=== PATIENT | male | born 1995 | race Caucasian/White ===

== ENCOUNTER 2022-01-10 14:00 | Outpatient (CLI) | payer OTHER, SELFPAY ==
--- NOTE | ~2022-01-10 | CT_ITS ---
EXAMINATION: CT diagnostic chest wo con DATE: 01/10/2022 15:16 INDICATION: Shortness of breath, dyspnea. Midsternal chest pain upon inspiration. TECHNIQUE: Computed tomography (CT) of the chest was performed without intravenous contrast. Automate d exposure control and iterative reconstruction technique were employed. Exam dose: 392.63 mGy-cm to kamilah exam DLP. COMPARISON: None FINDINGS: No pulmonary infiltrate or consolidation, pulmonary mass lesion or pneumothorax. No pleural effusion. No pneumomediastinum. Normal tracheobronchial tree. No hilar or mediastinal mass lesion or lymphadenopathy. Normal heart size. No thoracic aortic aneurys m. Included skeletal structures are unremarkable. IMPRESSION: Negative examination Reviewed, dictated and finalized at Location [facility]. Reviewed, dictated and finalized at location A. IMPRESSION: Negative examination
--- NOTE | 2022-01-10 16:22 | WPDSIXMINUTE ---
Six Minute Walk Procedure Procedure Performed Pulmonary Stress Test (6 min walk) Six Minute Walk Six Minute Walk: This is a 6 minute walk test. The test was performed and interpreted in accordance with the 2014 ERS/ATS task force guidelines. Findings: The patient's resting room air oxygen saturation measured by pulse oximetry was 95% and heart rate was 71 bpm. Patient ambulated [id number] meters and oxygen saturation remained 95 to 99%. Heart rate at the end of the study was 117 bpm. The patient did not qualify for supplemental oxygen at rest or with ambulation. There are no prior studies for comparison.
--- NOTE | 2022-01-10 16:23 | P.PCNPFT_ITS ---
PFT Procedure Performed PFT Procedure Performed Spirometry with Pre/Post Bronchodilator Plethysmography (Lung Vol) Diffusing Cap (DLCO) Flow Vol Loop PFT Interpretation This is a pulmonary function test with pre and post-bronchodilator spirometry, plethysmography and diffusing capacity. The test was performed and results interpreted in accordance with the 2019 and 2005 ATS/ERS Task Force guidelines respectively using the Global Lung Function Initiative-2012 reference equations. Patient demonstrated good effort and cooperation. Reproducibility criteria were met. The quality of the pre bronchodilator spirometry maneuver was Grade A and post bronchodilator spirometry maneuver was Grade A. Findings: Spirometry: There is decreased maximal expiratory airflow at all lung volumes. The contour the inspiratory flow tracing is normal. The pre bronchodilator FVC is 4.60 L, 81% predicted. The pre bronchodilator FEV1 is 3.23 L, 68% predicted. The pre bronchodilator FEV1: FVC ratio 70%. The post bronchodilator FVC is 4.74 L, representing a 3% increase. The post bronchodilator FEV1 is 3.39 L, representing a 5% increase. The post bronchodilator FEV1: FVC ratio 72%. Plethysmography: The total lung capacity is 5.77 L, 82% predicted. The functional residual capacity is 2.52 L, 73% predicted. The residual volume is 1.17 L, 75% predicted. Diffusion capacity: The diffusion capacity unadjusted for hemoglobin and carboxyhemoglobin is 37.8, 102% predicted. Diffusing capacity adjusted for a lveolar volume is 7.12, 135% predicted. Impression: There is a moderate obstructive abnormality without significant improvement after inhaling a single dose of albuterol. The lung volumes are normal. The diffusing capacity unadjusted for hemoglobin and carboxyhemoglobin is normal and is increase when adjusted for alveolar volume. There are no prior studies for comparison
== END 2022-01-10 14:01 | disposition home or self-care (01) ==
LOC: ANHPFT 14:04
PROVIDERS: PCP Emergency Medicine; Visit Provider Internal Medicine Pulmonary Disease
DX: R06.00 Dyspnea, unspecified (principal); Z87.891 Personal history of nicotine dependence; R94.2 Abnormal results of pulmonary function studies
CPT/HCPCS: 71250; 94060; 94618; 94726; 94729

== ENCOUNTER 2025-04-02 11:05 | Emergency (ER) | payer OTHER, SELFPAY ==
--- NOTE | ~2025-04-02 | US_ITS ---
ULTRASOUND ABDOMEN LIMITED (RIGHT UPPER QUADRANT) Clinical History: epigastric pain Comparison: None Technique: Right upper quadrant sonography Findings: Liver: Normal size. Hyperechoic. No intrahepatic biliary ductal dilatation. Normal hepatopedal flow main portal vein. Common Duct: Normal caliber. 5 mm. Gallbladder: Stone. No wall thickening. No pericholecystic fluid. Negative sonographic Mason's sign per technologist report Pancreas: With the obscured by bowel gas. Right kidney: Unremarkable. Retrohepatic IVC: Unremarkable. IMPRESSION: 1. Gallstones. No evidence of cholecystitis. 2. Hepatic steatosis and/or diffuse hepatocellular disease. Reviewed, dictated and finalized at location R.
--- NOTE | ~2025-04-02 | XR_ITS ---
Examination: XR chest 2V Clinical History: intermittent pain when breathing Comparison: CT chest 01/10/2022 Technique: PA and Lateral Findings: Cardiomediastinal silhouette normal size and configuration. Small patchy opacity right lower lobe. No acute bony abnormality. IMPRESSION: 1. Small right lower lobe atelectasis and/or airspace disease. Reviewed, dictated and finalized at location R.
[2025-04-02 11:07] VITALS: BP 147/72; PULSE 72; RESP 18; TEMP 36.8; O2SAT 97
--- OUTSIDE RECORDS SUMMARY | 2025-04-02 11:07 | XMS_ITS | Clinical Summary ---
Author Organization [facility] Address [address] [place] [address] Care Team Providers Care Puzzle Assembler Name Role Phone Ronn Salazar MD Primary Care Provider [phone] Source Comments [facility],non-owned Affiliates and Associated Physician Practices is amultiple site organization consisting of ambulatory clinics and hospital sitesin [place], [place], [place] and [place]. This disclosure is being madepursuant to the Care Everywhere program and may not contain all information available regarding this patient. Last updated 18.[facility] Allergies Active Allergy Reactions Criticality Noted Date Comments Casein Diarrhea High 03/22/2022 Chocolate Diarrhea High 03/22/2022 Coffee Flavor Diarrhea High 03/22/2022 [place] Oil Diarrhea High 03/22/2022 Peanut Butter Flavor Diarrhea High 03/22/2022 Soy Allergy Diarrhea High 03/22/2022 Sulfa Drugs Rash Medium 03/22/2022 Sumatriptan Rash Medium 03/22/2022 Tomato Diarrhea High 03/22/2022 Wheat Bran Diarrhea High 03/22/2022 Medications * Be aware that medications may not be up to date on this document. Alwaysverify current medications with the patient. albuterol HFA (PROAIR HFA) 108 (90 BASE) MCG/ACT inhalerIndicatio ns:Acute bronchitis, unspecified organism Inhale 2 puffs by mouth every 4 hours as needed for Shortness of Breath, Wheezing or Cough 1 Inhaler 7 Active benzonatate (TESSALON) 200 MG capsuleIndicatio ns:Acute bronchitis, unspecified organism Take 1 capsule by mouth 3 times daily as needed for Cough 30 capsule 7 Active lidocaine (Lidoderm) 5 % patch Apply 1 (one) patch to skin once daily Apply patch to most painful area and remove after 12 hours. May reapply a new patch 12 hours later. 30 patch 2 Active fluticasone propionate (Flonase) 50 MCG/ACT nasal spray Irvona 2 (two) sprays into each nostril once daily 16 g 11 2 Active Active Problems Problem Noted Date Diagnosed Date Migraines 04/25/2022 PVC (premature ventricular contraction) 04/25/20 22 Allergic asthma, unspecified asthma severity, un complicated 04/25/2022 Social History Tobacco Use Types Packs/Day Years Used Date Smoking Tobacco: Never Smokeless Tobacco: Never Alcohol Use Standard Drinks/Week Comments Never 0 (1 standard drink = 0.6 oz pur e alcohol) AUDIT-C Answer Date Recorded Q1: How often do you have a drink containing alcohol? Never 03/22/2022 Q2: How many drinks containi ng alcohol do you have on a typical day when you are drinking? Patient does not drink Q3: How often do you have si x or more drinks on one occasion? Never 03/22/2022 PHQ-2 Answer Date Recorded PHQ2 TOTAL SCORE 0 04/25/2022 Sex and Gender Information Value Date Recorded Sex Assigned at Not on file Legal Sex Male 8:37 AM CDT Gender Identity Not on file Sexual Orientation Not on file Last Filed Vital Signs Vital Sign Reading Time Taken Comments Blood Pressure 110/78 04/25/2022 2:48 PM CDT Pulse 83 04/25/2022 2:48 PM CDT Temperature 36.2 C (97.2 F) 04/25/2022 2:48 PM CDT Respiratory Rate 18 04/25/2022 2:48 PM CDT Oxygen Saturation 97% 04/25/2022 2:48 PM CDT Inhaled Oxygen Concentration - - Weight 102 kg (224 lb 12.8 oz) 04/25/2022 2:48 P M CDT Height 177.8 cm (5' 10) 04/25/2022 2:48 PM CDT Body Mass Index 32.26 04/25/2022 2:48 PM CDT Plan of Treatment Health Maintenance Due Date Last Done Comments HIV SCREENING 09/18/2011 HEPATITIS C SCREENING 09/13/2014 DTAP/TDAP/TD VACCINES (1 - Tdap) 09/18/2015 HEPATITIS B VACCINE (1 of 3 - 19+ 3-dose series) 09/18/2015 HPV VACCINE (1 - 3-dose SCDM series) 09/18/2023 DEPRESSION SCREENING 07/07/2024 04/25/2022 COVID-19 VACCINE (3 - season) 2025 11/04/2020, 10/07/2020 INFLUENZA VACCINE (#1) 2025 4, 06/03/2012, 08/08/2009, Additional history exists ZOSTER VACCINE (1 of 2) 2046 HIB VACCINE Aged Out No longer eligi ble based on patient's age to complete this topic MENINGOCOCCAL (Group B) VACCINE SHARED DECISION-MAKING Aged Out No longer eligible based on patient's age to complete this topic MENINGOCOCCAL GROUPS A/C/Y/W VACCINE Aged Out No longer eligible based on patient's age to complete this topic PNEUMOCOCCAL VACCINE Aged Out No long er eligible based on patient's age to complete this topic Insurance [employer] Care Teams Puzzle Assembler Relationship Specialty Start Date End Date Ronn Salazar MD [address] [facility] [address] [place] [address] PCP - General 10/23/17
--- OUTSIDE RECORDS SUMMARY | 2025-04-02 11:07 | XMS_ITS | Clinical Summary ---
Author Organization [facility] Address [address] [place] [address] Phone Care Team Providers Care Glassware Defect Repairer Name Role Phone Ronn Salazar Primary Care Provider [phone] Leslie Sifuentes APRN, PHOTOSTAT OPERATOR Unavailable [phone] Allergies Active Allergy Reactions Criticality Noted Date Comments Fluoxetine Unknown 08/10/2021 Sertraline Unknown 08/10/2021 Medications Cyanocobalamin (B-12 PO) Take by mouth. Active VITAMIN D PO Take by mouth. Active ARIPiprazole (ABILIFY) 2 MG Tablet Take 2 mg by mouth daily. Active OXcarbazepine (TRILEPTAL) 300 MG Tablet Take 300 mg by mouth 2 times daily. Active hydrALAZINE 50 MG Tablet Take 50 mg by mouth 3 times daily. Active topiramate (TOPAMAX) 100 MG TabletIndication s:Chronic migraine w/o aura w/o status migrainosus, not intractable TAKE 1 TABLET BY MOUTH TWICE A DAY 60 Tablet 3 11/06/2022 Active Rizatriptan Benzoate 5 MG TABLET DISPERSIBLEIndic ations:Chronic migraine w/o aura w/o status migrainosus, not intractable Take 1 Tablet by mouth once as needed for Migraine. 10 Tablet 3 03/19/2023 Active Active Problems No known active problems Family History Medical History Relation Name Comments Cancer Maternal Grandfather Stroke Maternal Grandfather Cancer Maternal Grandmother Heart Attack Maternal Grandmother Migraines Mother Cancer Paternal Grandfather Cancer Paternal Grandmother Relation Name Status Comments Maternal Grandfather Maternal Grandmother Mother Alive Paternal Grandfather Paternal Grandmother Social History Tobacco Use Types Packs/Day Years Used Date Smoking Tobacco: Never Smokeless Tobacco: Never Tobacco Cessation:Counseling Given: Not Answered Alcohol Use Standard Drinks/Week Comments Not Currently 0 (1 standard drink = 0.6 oz pur e alcohol) Sex and Gender Information Value Date Recorded Sex Assigned at Not on file Legal Sex Male 11:39 PM CDT Gender Identity Not on file Sexual Orientation Not on file Last Filed Vital Signs Vital Sign Reading Time Taken Comments Blood Pressure 122/70 01/26/2023 1:26 AM CDT Pulse 76 01/26/2023 1:26 AM CDT Temperature 37.7 C (99.9 F) 01/25/2023 10:10 PM CDT Respiratory Rate 18 01/26/2023 1:26 AM CDT Oxygen Saturation 98% 01/26/2023 1:26 AM CDT Inhaled Oxygen Concentration - - Weight 99.8 kg (220 lb) 01/25/2023 10:10 PM CDT Height 175.3 cm (5' 9) 01/25/2023 10:10 PM CDT Body Mass Index 32.49 01/25/2023 10:10 PM CDT Plan of Treatment Health Maintenance Due Date Last Done Comments Hepatitis C Virus (HCV) Screening 1996 Human Papillomavirus (HPV) Immunization (1 - 3-dose SCDM series) 09/18/2023 Influenza Immunization (#1) 03/07/202505/07, 06/03/2012, 06/03/2012, Additional history exists SARS-COV-2 Immunization ( season) 2025 11/04/2020, 10/07/2020 Respiratory Syncytial Virus (RSV) Immunization (Adult) (1 - 1-dose 75+ series) 09/18/2071 Hepatitis B Immunization Completed 997, 1996, 1996 DTaP/Tdap/Td Immunization Discontinued 2006, 11/20/2001, 01/03/1998, Additional history exists TdaP Immunization Completed 12/12/2006 Meningococcal Immunization (ACWY) Completed 03/24/2013, 05/17/2008 Pneumococcal Immunization Combined Aged Out No longer eligible based on patient's age to complete this topic Rotavirus Immunization Aged Out No lo nger eligible based on patient's age to complete this topic Insurance [facility] Care Teams Glassware Defect Repairer Relationship Specialty Start Date End Date Ronn Salazar [address] [place] [address] PCP - General Family Medicine 08/10/21 Leslie Sifuentes APRN, PHOTOSTAT OPERATOR [address] [facility] [place] [id number] Nurse Practitioner Advanced Practice Nurse 10/08/22
--- OUTSIDE RECORDS SUMMARY | 2025-04-02 11:07 | XMS_ITS | Encounter Summary ---
Author Organization [facility] Address [address] [place] [address] Phone Care Team Providers Care Manufacturing Teacher Name Role Phone Ronn Salazar Primary Care Provider Leslie Sifuentes APRN, MACHINE TOOL TECHNOLOGY INSTRUCTOR Unavailable [phone] Reason for Visit * Reason Comments Medication Refill Encounter Details Date Type Department Care Team (Late st Contact Info) Description 11/06/2022 Refill [facility] - Neurology [facility] [address] [place] [address] Leslie Sifuentes, IMAGING SCHEDULER, MACHINE TOOL TECHNOLOGY INSTRUCTOR [address] [place] [address] Medication Refill Social History Tobacco Use Types Packs/Day Years Used Date Smoking Tobacco: Never Smokeless Tobacco: Never Alcohol Use Standard Drinks/Week Comments Not Currently 0 (1 standard drink = 0.6 oz pur e alcohol) Sex and Gender Information Value Date Recorded Sex Assigned at Not on file Legal Sex Male 11:39 PM CDT Gender Identity Not on file Sexual Orientation Not on file COVID-19 Exposure Response Date Recorded In the last 10 days, have yo u been in contact with someone who was confirmed or suspected to have Coronavirus/COVID-19? No / Unsure 11/07/2022 6:55 AM CDT documented as of this encounter Miscellaneous Notes * Telephone Encounter - Tiffany Garcia RN - 11/06/2022 1:04 PM CDT Medication failed the protocol, provider to review and approve the medication order if appropriate. Requested Prescriptions Pending Prescriptions Disp Refills topiramate (TOPAMAX) 100 MG Tablet [Pharmacy Med Name: TOPIRAMATE 100 MG TABLET] 60 Tablet 3 Sig: TAKE 1 TABLET BY MOUTH TWICE A DAY Not Delegated - Anticonvulsants Excluding Benzodiazepines Protocol Failed - 11/06/2022 11:34 AM Failed - This refill cannot be delegated Passed - Visit with relevant provider in past 12 months or upcoming 90 days Recent Visits Date Type Provider Dept 10/08/22 Telemedicine Leslie Sifuentes APRN, MACHINE TOOL TECHNOLOGY INSTRUCTOR [facility] 01/21/22 Telemedicine Leslie Sifuentes APRN, [facility] 12/12/21 Telemedicine Leslie Sifuentes APRN, MACHINE TOOL TECHNOLOGY INSTRUCTOR [facility] Showing recent visits within past 365 days and meeting all other requirements Future Appointments No visits were found meeting these conditions. Showing future appointments within next 90 days and meeting all other requirements documented in this encounter Plan of Treatment Not on file documented as of this encounter Visit Diagnoses Diagnosis Chronic migraine w/o aura w/o status migrainosus, not intractable Chronic migraine without aura, without mention of intractable migraine without mention of status migrainosus documented in this encounter Care Teams Manufacturing Teacher Relationship Specialty Start Date End Date Ronn Salazar [facility] [place] [address] PCP - General Family Medicine 08/10/21 Leslie Sifuentes APRN, CNS [address] [place] [address] Nurse Practitioner Advanced Practice Nurse 10/08/22 documented as of this encounter
--- OUTSIDE RECORDS SUMMARY | 2025-04-02 11:07 | XMS_ITS | Clinical Summary ---
Author Organization [facility] Address [address] [place] [address] Care Team Providers Care Assistant Education Director Name Role Phone Ronn Salazar MD Primary Care Provider [phone] Allergies Active Allergy Reactions Criticality Noted Date Comments Casein Diarrhea,Other (see comment) High 03/14/2022 IBS Chocolate Diarrhea,Other (see comment) High 03/14/2022 IBS Coffea Arabica Other (see comment) Low 03/14/2022 IBS Coffee Flavoring Agent (Non-Screening) Diarrhea High 03/22/2022 [place] Oil Diarrhea,Other (see comment) High 03/14/2022 IBS Fluoxetine Unknown 08/14/2021 Lactose Other (see comment) Low 03/14/2022 IBS Peanut Butter Flavoring Agent (Non-Screening) Diarrhea,Other (see comment) High 03/14/2022 IBS Sertraline Unknown 08/14/2021 Soy Allergy (Obsolete) Diarrhea High 03/22/2022 Sulfa Antibiotics Rash Medium 03/22/2022 Sumatriptan Rash Medium 03/22/2022 Tomato Diarrhea,Other (see comment) High 03/14/2022 IBS Wheat Diarrhea,Other (see comment) High 03/14/2022 IBS Yeast Other (see comment) Low 03/14/2022 IBS Medications cholecalciferol (VITAMIN D3) 125 MCG (5000 UT) Tab Take 5,000 Units by mouth daily. Active hydrOXYzine (ATARAX) 50 MG tablet take 1 tablet by oral route 2 times every day PRN as needed Active topiramate (TOPAMAX) 50 MG Tab Take 1 tablet by mouth every 12 (twelve) hours. 2 Active OXcarbazepine (TRILEPTAL) 300 MG tablet Take 1 tablet by mouth every 12 (twelve) hours. 2 Active risperiDONE (RISPERDAL) 0.5 MG tablet Take 1 tablet by mouth every 12 (twelve) hours. 2 Active rizatriptan (MAXALT-BUILDING PRESSURE WASHER) 5 MG disintegrating tablet Take 5 mg by mouth. 2 Active hydrOXYzine Pamoate 100 MG Cap TAKE 1 CAPSULE BY MOUTH AT BEDTIME NEEDED FOR ANXIETY AND AGITATION 2 Active Active Problems Problem Noted Date Diagnosed Date Obesity, Class II, BMI 35-39.9 08/15/2021 Syncope 08/15/2021 Autism (HHS/HCC) 08/15/2021 IBS (irritable bowel syndrome) 08/15/2021 Immunizations Immunization Administration Dates Next Due Dtp (Generic) 11/20/2001, 8,03/31/1997,02/01/1997, H1N1 2009 Influenza Vaccine 08/08/2009 Hepatitis A (Havrix [address]) 02/21/2004, 003 Hepatitis B Pediatric 03/31/1997,1996,09/04 Hib (Generic) 01/03/1998,03/31/1997,02/01/1997 ,1996 Influenza (Generic) 05/18/2014, 2,06/25/2007,04/14/2003, MMR (MMRII) 01/21/2001,09/23/1997 Meningococcal (Menactra) 03/24/2013,05/17/2008 Polio IPV (Ipol) 11/20/2001, 8,03/31/1997,02/01/1997, Tdap (Generic) 12/12/2006 Family History Medical History Relation Comments Hypertension Maternal Grandmother Hole in heart Sister Relation Status Comments Father Alive Maternal Grandmother Mother Alive Sister Social History Tobacco Use Types Packs/Day Years Used Date Smoking Tobacco: Never Smokeless Tobacco: Never Tobacco Cessation:Counseling Given: Not Answered Alcohol Use Standard Drinks/Week Comments Not Currently 0 (1 standard drink = 0.6 oz pur e alcohol) Sex and Gender Information Value Date Recorded Sex Assigned at Not on file Legal Sex Male 9:46 AM PEDIATRIC DENTIST Gender Identity Not on file Sexual Orientation Not on file Last Filed Vital Signs Vital Sign Reading Time Taken Comments Blood Pressure 104/70 05/21/2022 9:07 AM PEDIATRIC DENTIST Pulse 78 05/21/2022 9:07 AM PEDIATRIC DENTIST Temperature 37.1 C (98.7 F) 05/10/2022 1:54 PM CDT Respiratory Rate 16 05/10/2022 5:30 PM CDT Oxygen Saturation 97% 05/21/2022 9:07 AM PEDIATRIC DENTIST Inhaled Oxygen Concentration - - Weight 100.7 kg (222 lb) 05/21/2022 9:07 AM PEDIATRIC DENTIST Height 180.3 cm (5' 11) 05/21/2022 9:07 AM PEDIATRIC DENTIST Body Mass Index 30.96 05/21/2022 9:07 AM PEDIATRIC DENTIST Plan of Treatment Health Maintenance Due Date Last Done Comments Annual Physical 09/18/1999 Hepatitis C 2014 DTaP, Tdap and Td Vaccines (7 - Td or Tdap) 12/12/2016 12/12/2006, 11/20/2001, 01/03/1998, Additional history exists HPV Vaccines (1 - 3-dose SCDM series) 09/18/2023 COVID-19 Vaccine (3 - season) 2025 11/04/2020, 10/07/2020 Hepatitis B Vaccines Completed 03/31/1997, 1996, 1996 Meningococcal Vaccine Completed 03/24/2013, 008 Meningococcal B Vaccine Aged Out No l onger eligible based on patient's age to complete this topic Pneumococcal Vaccine: Pediatrics (0 to 5 Years) and At-Risk Patients (6 to 49 Years) Aged Out No longer eligible based on patient's age to complete this topic RSV Immunizations Under 20 Months Aged Out No longer eligible based on patient's age to complete this topic Insurance [employer] [place] Care Teams Assistant Education Director Relationship Specialty Start Date End Date Ronn Salazar MD PCP - General FAMILY PRACTICE 08/08/21
--- OUTSIDE RECORDS SUMMARY | 2025-04-02 11:07 | XMS_ITS | Encounter Summary ---
Author Organization [facility] Address [address] [place] [address] Phone Care Team Providers Care Supplier Quality Specialist Name Role Phone Ronn Salazar Primary Care Provider [phone] Leslie Sifuentes APRN, DOSIER OPERATOR Unavailable [phone] Reason for Visit * Reason Comments Medication Refill Encounter Details Date Type Department Care Team (Late st Contact Info) Description 02/03/2023 Refill [facility] - Neurology [facility] [address] [place] [address] Leslie Sifuentes, CIGAR ROLLER, DOSIER OPERATOR [address] [place] [address] Medication Refill Social History Tobacco Use Types [...] suspected to have Coronavirus/COVID-19? No / Unsure 01/25/2023 10:10 PM CDT documented as of this encounter Miscellaneous Notes * Telephone Encounter - Tiffany Garcia RN - 03/19/2023 2:59 PM CDT Medication failed the protocol, provider to review and approve the medication order if appropriate. Requested Prescriptions Pending Prescriptions Disp Refills Rizatriptan Benzoate 5 MG TABLET DISPERSIBLE 10 Tablet 3 Sig: Take 1 Tablet by mouth once as needed for Migraine. Not Delegated - Serotonin Agonists (Oral and Nasal) Protocol Failed - 03/19/2023 2:54 PM Failed - This refill cannot be delegated; check utilization no more than 9 doses per month Passed - Visit with relevant provider in past 24 months or upcoming 90 days Recent Visits Date Type Provider Dept 10/08/22 Telemedicine Leslie Sifuentes APRN, [facility] 01/21/22 Telemedicine Leslie Sifuentes APRN, [facility] 12/12/21 Telemedicine Leslie Sifuentes APRN, [facility] 10/16/21 Office Visit Leslie Sifuentes APRN, [facility] Showing recent visits within past 730 days and meeting all other requirements Future Appointments No visits were found meeting these conditions. Showing future appointments within next 90 days and meeting all other requirements Passed - No documented Systolic BP > 200 within past 3 months Passed - Number of active Serotonergic medications less than 3 Refused Prescriptions Disp Refills topiramate (TOPAMAX) 100 MG Tablet [Pharmacy Med Name: TOPIRAMATE 100 MG TABLET] 180 Tablet 1 Sig: TAKE 1 TABLET BY MOUTH TWICE A DAY Not Delegated - Anticonvulsants Excluding Benzodiazepines Protocol Failed - 03/19/2023 2:54 PM Failed - This refill cannot be delegated Passed - Visit with relevant provider in past 12 months or upcoming 90 days Recent Visits Date Type Provider Dept 10/08/22 Telemedicine Leslie Sifuentes APRN, [facility] Showing recent visits within past [...] migrainosus documented in this encounter Care Teams Supplier Quality Specialist Relationship Specialty Start Date End Date Ronn Salazar [address] [place] [address] PCP - General Family Medicine 08/10/21 Leslie Sifuentes APRN, DOSIER OPERATOR [address] [place] [address] Nurse Practitioner Advanced Practice Nurse 10/08/22 documented as of this encounter
--- OUTSIDE RECORDS SUMMARY | 2025-04-02 11:07 | XMS_ITS | Encounter Summary ---
Author Organization [facility] Address [address] [facility] [address] Phone Care Team Providers Care Crude Oil Treater Name Role Phone Ronn Salazar Primary Care Provider [phone] Leslie Sifuentes APRN, SVP DIGITAL SALES FOOD & COOKING Unavailable [phone]- [phone] Reason for Visit * Reason Comments Medication Refill Encounter Details Date Type Department Care Team (Late st Contact Info) Description 12/15/2022 Refill [facility] - Neurology [facility] [address] [place] [address] Leslie Sifuentes, MINDY, SVP DIGITAL SALES FOOD & COOKING [address]2 [place] [address] Medication Refill Social History Tobacco Use Types Packs/Day Years Used Date Smoking Tobacco: Never Smokeless Tobacco: Never Alcohol Use Standard Drinks/Week Comments Not Currently 0 (1 standard drink = 0.6 oz pur e alcohol) Sex and Gender Information Value Date Recorded Sex Assigned at Not on file Legal Sex Male 11:39 PM CDT Gender Identity Not on file Sexual Orientation Not on file documented as of this encounter Plan of Treatment Not on file documented as of this encounter Visit Diagnoses Diagnosis Chronic migraine w/o aura w/o status migrainosus, not intractable Chronic migraine without aura, without mention of intractable migraine without mention of status migrainosus documented in this encounter Care Teams Crude Oil Treater Relationship Specialty Start Date End Date Ronn Salazar [address] [place] [address] PCP - General Family Medicine 08/10/21 Leslie Sifuentes APRN, SVP [employer]OD [employer]OOKING [address] [place] [address] Nurse Practitioner Advanced Practice Nurse 10/08/22 documented as of this encounter
--- OUTSIDE RECORDS SUMMARY | 2025-04-02 11:07 | XMS_ITS | Encounter Summary ---
Author Organization [facility] Address [facility] [place] [address] Care Team Providers Care Customer Relations Representative Name Role Phone Ronn Salazar MD Primary Care Provider [phone] Encounter Details Date Type Department Care Team (Late st Contact Info) Description 08/15/2021 Abstract [facility] [address] Rupesh Dueñas MA Social History Tobacco Use Types Packs/Day Years Used Date Smoking Tobacco: Never Smokeless Tobacco: Never Alcohol Use Standard Drinks/Week Comments Not Currently 0 (1 standard drink = 0.6 oz pur e alcohol) Sex and Gender Information Value Date Recorded Sex Assigned at Not on file Legal Sex Male 9:46 AM AGRICULTURAL PRODUCE SORTER Gender Identity Not on file Sexual Orientation Not on file COVID-19 Exposure Response Date Recorded In the last 10 days, have yo u been in contact with someone who was confirmed or suspected to have Coronavirus/COVID-19? No / Unsure 08/15/2021 8:59 AM AGRICULTURAL PRODUCE SORTER documented as of this encounter Plan of Treatment Not on file documented as of this encounter Procedures Procedure Name Priority Date/Time Associated Diagnosis Comments FOLATE (OUTSIDE LAB) Routine 08/10/2021 CBC (OUTSIDE LAB) Routine 08/10/2021 VITAMIN B-12 Routine 08/10/2021 RENAL FUNCTION PANEL Routine 08/10/2021 LIPID PANEL Routine 08/10/2021 IRON BINDING TEST Routine 08/10/2021 HEPATIC FUNCTION PANEL Routine 08/10/2021 HEMOGLOBIN, GLYCOSYLATED Routine 08/10/2021 THYROID STIM HORMONE TSH Routine 08/10/2021 IRON Routine 08/10/2021 FERRITIN Routine 08/10/2021 documented in this encounter Results * FOLATE (OUTSIDE LAB) (08/10/2021) FOLATE 10.6 3.4 - 5.4 08/10/2021 [facility] Abstract LAB-OUTSIDE/ABSTRACTED Final Result * VITAMIN B-12 (08/10/2021) VITAMIN B12 S/P/B 309 200 - 1,100 08/10/2021 [facility] Abstract LABORATORY Final Result * CBC (OUTSIDE LAB) (08/10/2021) WBC 5.9 HGB 14.2 HCT 42.9 PLT 303 08/10/2021 [facility] Abstract LAB-OUTSIDE/ABSTRACTED Final Result * THYROID STIM HORMONE, TSH (08/10/2021) TSH 2.36 08/10/2021 [facility] Abstract LABORATORY Final Result * HEPATIC FUNCTION PANEL (08/10/2021) ALBUMIN S/P/B 4.4 3.5 - 5.0 ALKALINE PHOSPHATASE S/P/B 51 ALT 13 AST 12 BILIRUBIN DIRECT S/P/B 0.1 BILIRUBIN TOTAL S/P/B 0.8 TOTAL PROTEIN S/P/B 7.1 GLOBULIN 2.7 08/10/2021 [facility] Abstract LABORATORY Final Result * HEMOGLOBIN, GLYCOSYLATED (08/10/2021) HGB A1C 4.6 % 08/10/2021 [facility] Abstract LABORATORY Final Result * RENAL FUNCTION PANEL (08/10/2021) ALBUMIN S/P/B 4.4 3.5 - 5.0 CALCIUM S/P/B 9.1 CO2 27 CHLORIDE S/P/B 105 CREATININE S/P/B 0.97 0.7 - 1.3 GLUCOSE 86 mg/dL POTASSIUM S/P/B 4.0 SODIUM S/P/B 140 BUN 11 PHOSPHORUS 4.1 08/10/2021 [facility] Abstract LABORATORY Final Result * LIPID PANEL (08/10/2021) CHOLESTEROL 135 HDL 41 TRIGLYCERIDES 134 NON HDL CHOLESTEROL 94 LDL (CALCULATED) 72 08/10/2021 [facility] Abstract LABORATORY Final Result * FERRITIN (08/10/2021) FERRITIN 69 38 - 380 08/10/2021 [facility] Abstract LABORATORY Final Result * IRON BINDING TEST (08/10/2021) IRON BINDING CAPACITY 305 250 - 425 08/10/2021 [facility] Abstract LABORATORY Final Result * IRON (08/10/2021) IRON 142 50 - 195 08/10/2021 [facility] Abstract LABORATORY Final Result documented in this encounter Visit Diagnoses Not on filedocumented in this encounter Care Teams Customer Relations Representative Relationship Specialty Start Date End Date Ronn Salazar MD PCP - General FAMILY PRACTICE 08/08/21 documented as of this encounter
--- OUTSIDE RECORDS SUMMARY | 2025-04-02 11:07 | XMS_ITS | Encounter Summary ---
Author Organization [facility] Address [address] [facility] [place] [address] Phone Care Team Providers Care Deputy Director Name Role Phone Ronn Salazar Primary Care Provider [phone] Leslie Sifuentes APRN, FUNCTIONAL CONSULTANT Unavailable [phone] Reason for Visit * Reason Comments Medication Refill Encounter Details Date Type Department Care Team (Late st Contact Info) Description 12/12/2022 Refill [facility] - Neurology [facility] [address]2 [place] [address] Leslie Sifuentes, MINDY, FUNCTIONAL CONSULTANT [address] [place] [address] Medication Refill Social History Tobacco Use Types [...] migrainosus documented in this encounter Care Teams Deputy Director Relationship Specialty Start Date End Date Ronn Salazar [address] [facility] [place] [place] [address] PCP - General Family Medicine 08/10/21 Leslie Sifuentes APRN, FUNCTIONAL CONSULTANT [address] [place] [address] Nurse Practitioner Advanced Practice Nurse 10/08/22 documented as of this encounter
--- OUTSIDE RECORDS SUMMARY | 2025-04-02 11:07 | XMS_ITS | Encounter Summary ---
Author Organization [facility] Address [address] [facility] [place] [address] Phone Care Team Providers Care Commercial Lending Relationship Manager Name Role Phone Ronn Salazar Primary Care Provider [phone] Leslie Sifuentes APRN, MOTH PROOFER Unavailable [phone]- [phone] Reason for Visit * Reason Comments Medication Refill Encounter Details Date Type Department Care Team (Late st Contact Info) Description 04/09/2023 Refill [facility] - Neurology [facility] [address] [place] [address] Leslie Sifuentes, MINDY, MOTH PROOFER [address] [place] [address] Medication Refill Social History Tobacco Use Types [...] migrainosus documented in this encounter Care Teams Commercial Lending Relationship Manager Relationship Specialty Start Date End Date Ronn Salazar [address] [place] [address] PCP - General Family Medicine 08/10/21 Leslie Sifuentes APRN, MOTH PROOFER [address] [place] [address] Nurse Practitioner Advanced Practice Nurse 10/08/22 documented as of this encounter
--- OUTSIDE RECORDS SUMMARY | 2025-04-02 11:07 | XMS_ITS | Encounter Summary ---
Author Organization [facility] Address [address] [facility] [place] [place] [address] Phone Care Team Providers Care Superintendent Pier Name Role Phone Ronn Salazar Primary Care Provider [phone] Leslie Sifuentes APRN, CO TEACHER Unavailable [phone] Reason for Visit * Reason Comments Medication Refill Encounter Details Date Type Department Care Team (Late st Contact Info) Description 12/16/[address] [facility] - Neurology [facility] #2 [place] [address] Leslie Sifuentes, MINDY, CO TEACHER [address] [place] [address] Medication Refill Social History Tobacco Use Types [...] migrainosus documented in this encounter Care Teams Superintendent Pier Relationship Specialty Start Date End Date Ronn Salazar [address] [facility] [place] [address] PCP - General Family Medicine 08/10/21 Leslie Sifuentes APRN, CO TEACHER [address] [place] [address] Nurse Practitioner Advanced Practice Nurse 10/08/22 documented as of this encounter
[2025-04-02 12:06] LABS: Add Urine Microscopic? NO; Appearance Urine Clear (Clear); Glucose Urine UA Negative (Negative); Leukocyte Esterase Ur Negative LEU/UL (Negative); Nitrate Urine Negative (Negative); Specific Grav Ur 1.007 (1.001-1.035)
--- NOTE | 2025-04-02 12:10 | ECG_ITS ---
Test Date: 2025-04-02 12:29:41 Measurements Intervals [place] Rate: 63 P: 15 [place]: 190 QRS: 33 QRSD: 94 T: 22 QT: 372 QTc: 382 Interpretive Statements SINUS RHYTHM RIGHT VENTRICULAR CONDUCTION DELAY EARLY REPOLARIZATION Electronically Signed On 04-03-2025 20:41:47 CDT by Ko Manning D.O
[2025-04-02 12:13] LABS: Hematocrit 45.5 % (42.0-52.0); Hemoglobin 15.0 g/dL (14.0-18.0); Immature Granulocyte Percent A 0.3 % (0-0.5); Lymphocytes Absolute Auto 1.88 K/mm3 (0.9-3.2); Mean Corpuscular HGB Conc 33.0 g/dl (32-36); Mean Corpuscular Hemoglobin 28.9 pg (26-34); Mean Corpuscular Volume 87.7 fl (80-100); Nucleated Red Blood Cells Absolute Auto 0.000 K/mm3 (0.0-0.012); Nucleated Red Blood Cells Perc 0.0 % (0.0-0.2); Platelet Count Result 296 k/mm3 (150-375); Red Blood Count 5.19 M/mm3 (4.6-6.20); White Blood Count 7.5 K/mm3 (4.5-10.0)
--- OUTSIDE RECORDS SUMMARY | 2025-04-02 12:18 | XMS_ITS | Clinical Summary ---
Author Organization [facility] Address [address] [place] [address] Care Team Providers Care Advertising Material Distributor Name Role Phone Ronn Salazar MD Primary Care Provider [phone] Allergies Active Allergy Reactions Criticality Noted Date Comments Casein Diarrhea,Other (see comment) High 03/14/2022 IBS Chocolate Diarrhea,Other (see comment) High 03/14/2022 IBS Coffea Arabica Other (see comment) Low 03/14/2022 IBS Coffee Flavoring Agent (Non-Screening) Diarrhea High 03/22/2022 [place] Oil Diarrhea,Other (see comment) High 03/14/2022 IBS [...] every 12 (twelve) hours. 2 Active rizatriptan (MAXALT-CLIENT DELIVERY MANAGER) 5 MG disintegrating tablet Take 5 mg [...] on file Legal Sex Male 9:46 AM SUBMARINE ELEMENT COORDINATOR Gender Identity Not on file Sexual Orientation Not on file Last Filed Vital Signs Vital Sign Reading Time Taken Comments Blood Pressure 104/70 05/21/2022 9:07 AM SUBMARINE ELEMENT COORDINATOR Pulse 78 05/21/2022 9:07 AM SUBMARINE ELEMENT COORDINATOR Temperature 37.1 C (98.7 F) 05/10/2022 1:54 PM CDT Respiratory Rate 16 05/10/2022 5:30 PM CDT Oxygen Saturation 97% 05/21/2022 9:07 AM SUBMARINE ELEMENT COORDINATOR Inhaled Oxygen Concentration - - Weight 100.7 kg (222 lb) 05/21/2022 9:07 AM SUBMARINE ELEMENT COORDINATOR Height 180.3 cm (5' 11) 05/21/2022 9:07 AM SUBMARINE ELEMENT COORDINATOR Body Mass Index 30.96 05/21/2022 9:07 AM SUBMARINE ELEMENT COORDINATOR Plan of Treatment Health Maintenance Due Date [...] this topic Insurance [employer] Care Teams Advertising Material Distributor Relationship Specialty Start Date End Date Ronn Salazar MD PCP - General FAMILY PRACTICE 08/08/21
--- OUTSIDE RECORDS SUMMARY | 2025-04-02 12:18 | XMS_ITS | Encounter Summary ---
Author Organization [facility] Address [address] [place] [address] Phone Care Team Providers Care Outpatient Coder Name Role Phone Ronn Salazar Primary Care Provider [phone] Leslie Sifuentes APRN, DESIGN TECHNOLOGY PROFESSOR Unavailable [phone] Reason for Visit * Reason Comments Medication Refill Encounter Details Date Type Department Care Team (Late st Contact Info) Description 02/03/2023 Refill [facility] - [facility] [address] [place] [address] Leslie Sifuentes, SPA MANAGER, DESIGN TECHNOLOGY PROFESSOR [address] [place] [address] Medication Refill Social History Tobacco Use Types [...] Provider Dept 10/08/22 Telemedicine Leslie Sifuentes APRN, [facility]/21/22 Telemedicine Leslie Sifuentes APRN, [facility] 12/12/21 Telemedicine Leslie Sifuentes APRN, [facility] 10/16/21 Office Visit Leslie Sifuentes APRN, [facility] Showing recent visits within past 730 days [...] Provider Dept 10/08/22 Telemedicine Leslie Sifuentes APRN, [facility] Showing recent visits within past 365 days [...] migrainosus documented in this encounter Care Teams Outpatient Coder Relationship Specialty Start Date End Date Ronn Salazar [address] [place] [address] PCP - General Family Medicine 08/10/21 Leslie Sifuentes APRN, DESIGN TECHNOLOGY PROFESSOR [address] [place] [address] Nurse Practitioner Advanced Practice Nurse 10/08/22 documented as of this encounter
--- OUTSIDE RECORDS SUMMARY | 2025-04-02 12:18 | XMS_ITS | Encounter Summary ---
Author Organization [facility] Address [address] [facility] [place] [address] Phone Care Team Providers Care Recreation Supervisor Name Role Phone Ronn Salazar Primary Care Provider [phone] Leslie Sifuentes APRN, TUNNEL KILN FIRER Unavailable [phone] Reason for Visit * Reason Comments Medication Refill Encounter Details Date Type Department Care Team (Late st Contact Info) Description 12/12/2022 Refill [facility] - Neurology [facility] [address] [place] [address] Leslie Sifuentes, MINDY, TUNNEL KILN FIRER [address] [place] [address] Medication Refill Social History Tobacco Use Types [...] migrainosus documented in this encounter Care Teams Recreation Supervisor Relationship Specialty Start Date End Date Ronn Salazar [address] [place] [address] PCP - General Family Medicine 08/10/21 Leslie Sifuentes APRN, TUNNEL KILN FIRER [address] [place] [address] Nurse Practitioner Advanced Practice Nurse 10/08/22 documented as of this encounter
--- OUTSIDE RECORDS SUMMARY | 2025-04-02 12:18 | XMS_ITS | Encounter Summary ---
Author Organization [facility] Address [address] [facility] [place] [address] Phone Care Team Providers Care Optical Goods Drilling Machine Operator Name Role Phone Ronn Salazar Primary Care Provider [phone] Leslie Sifuentes APRN, FIELD TEST ENGINEER Unavailable [phone] Reason for Visit * Reason Comments Medication Refill Encounter Details Date Type Department Care Team (Late st Contact Info) Description 04/09/2023 Refill [facility] - Neurology [facility] [address] [place] [address] Leslie Sifuentes, MINDY, FIELD TEST ENGINEER [address] [place] [address] Medication Refill Social History Tobacco Use Types [...] migrainosus documented in this encounter Care Teams Optical Goods Drilling Machine Operator Relationship Specialty Start Date End Date Ronn Salazar [address] [place] [address] PCP - General Family Medicine 08/10/21 Leslie Sifuentes APRN, FIELD TEST ENGINEER [address] [place] [address] Nurse Practitioner Advanced Practice Nurse 10/08/22 documented as of this encounter
--- OUTSIDE RECORDS SUMMARY | 2025-04-02 12:18 | XMS_ITS | Encounter Summary ---
Author Organization [facility] Address [address] [facility] [place] [address] Phone Care Team Providers Care Substance Abuse Clinician Name Role Phone Ronn Salazar Primary Care Provider [phone] Leslie Sifuentes APRN, GROUND EQUIPMENT MECHANIC Unavailable [phone] Reason for Visit * Reason Comments Medication Refill Encounter Details Date Type Department Care Team (Late st Contact Info) Description 12/16/2021 Refill [facility] - Neurology [facility] #2 [place] [address] Leslie Sifuentes, MINDY, GROUND EQUIPMENT MECHANIC [address] [place] [address] Medication Refill Social History Tobacco Use Types [...] migrainosus documented in this encounter Care Teams Substance Abuse Clinician Relationship Specialty Start Date End Date Ronn Salazar [address] [facility] [place] [address] PCP - General Family Medicine 08/10/21 Leslie Sifuentes APRN, GROUND EQUIPMENT MECHANIC [address] [place] [address] Nurse Practitioner Advanced Practice Nurse 10/08/22 documented as of this encounter
--- OUTSIDE RECORDS SUMMARY | 2025-04-02 12:18 | XMS_ITS | Encounter Summary ---
Author Organization [facility] Address [facility] [place] [address] Care Team Providers Care Document Management Analyst Name Role Phone Ronn Salazar MD Primary Care Provider [phone] Encounter Details Date Type Department Care Team (Late st Contact Info) Description 08/15/2021 Abstract [facility] [address] Rupesh Dueñas MA Social History Tobacco Use Types Packs/Day Years Used Date Smoking Tobacco: Never Smokeless Tobacco: Never Alcohol Use Standard Drinks/Week Comments Not Currently 0 (1 standard drink = 0.6 oz pur e alcohol) Sex and Gender Information Value Date Recorded Sex Assigned at Not on file Legal Sex Male 9:46 AM OXYACETYLENE CUTTER Gender Identity Not on file Sexual Orientation Not on file COVID-19 Exposure Response Date Recorded In the last 10 days, have yo u been in contact with someone who was confirmed or suspected to have Coronavirus/COVID-19? No / Unsure 08/15/2021 8:59 AM OXYACETYLENE CUTTER documented as of this encounter Plan of [...] on filedocumented in this encounter Care Teams Document Management Analyst Relationship Specialty Start Date End Date Ronn Salazar MD PCP - General FAMILY PRACTICE 08/08/21 documented as of this encounter
--- OUTSIDE RECORDS SUMMARY | 2025-04-02 12:18 | XMS_ITS | Encounter Summary ---
Author Organization [facility] Address [address] [facility] [place] [place] [address] Phone Care Team Providers Care Luggage Repairer Name Role Phone Ronn Salazar Primary Care Provider [phone] Leslie Sifuentes APRN, TRANSPLANT RN Unavailable [phone] Reason for Visit * Reason Comments Medication Refill Encounter Details Date Type Department Care Team (Late st Contact Info) Description 12/15/2022 Refill [facility] - Neurology [facility] #2 [place] [address] Leslie Sifuentes, MINDY, TRANSPLANT RN #[address] [place] [address] Medication Refill Social History Tobacco Use Types [...] migrainosus documented in this encounter Care Teams Luggage Repairer Relationship Specialty Start Date End Date Ronn Salazar [address] [facility] [place] [address] PCP - General Family Medicine 08/10/21 Leslie Sifuentes APRN, TRANSPLANT RN #[address] [place] [address] Nurse Practitioner Advanced Practice Nurse 10/08/22 documented as of this encounter
--- OUTSIDE RECORDS SUMMARY | 2025-04-02 12:18 | XMS_ITS | Encounter Summary ---
Author Organization [facility] Address [address] [place] [address] Phone Care Team Providers Care Photography Coordinator Name Role Phone Ronn Salazar Primary Care Provider [phone] Leslie Sifuentes APRN, PLASMA CUTTING MACHINE OPERATOR Unavailable [phone] Reason for Visit * Reason Comments Medication Refill Encounter Details Date Type Department Care Team (Late st Contact Info) Description 11/06/2022 Refill [facility] - Neurology [facility] [address] [place] [address] Leslie Sifuentes, MOUNTAIN SERVICES MANAGER, PLASMA CUTTING MACHINE OPERATOR [address] [place] [address] Medication Refill Social History Tobacco Use Types [...] Provider Dept 10/08/22 Telemedicine Leslie Sifuentes APRN, PLASMA CUTTING MACHINE OPERATOR [facility] 01/21/22 Telemedicine Leslie Sifuentes APRN, DEMARCO [facility] 12/12/21 Telemedicine Leslie Sifuentes APRN, PLASMA CUTTING MACHINE OPERATOR [facility] Show[facility] recent visits within past 365 [...] migrainosus documented in this encounter Care Teams Photography Coordinator Relationship Specialty Start Date End Date Ronn Salazar [facility] [place] [address] PCP - General Family Medicine 08/10/21 Leslie Sifuentes APRN, CNS [address] [place] [address] Nurse Practitioner Advanced Practice Nurse 10/08/22 documented as of this encounter
--- OUTSIDE RECORDS SUMMARY | 2025-04-02 12:18 | XMS_ITS | Clinical Summary ---
Author Organization [facility] Address [address] [facility] [place] [address] Phone Care Team Providers Care Computer Technology Trainer Name Role Phone Ronn Salazar Primary Care Provider [phone] Leslie Sifuentes APRN, BALLOON SANDER Unavailable [phone] Allergies Active Allergy Reactions Criticality Noted Date [...] patient's age to complete this topic Insurance [facility] Care Teams Computer Technology Trainer Relationship Specialty Start Date End Date Ronn Salazar [address] [place] [address] PCP - General Family Medicine 08/10/21 Leslie Sifuentes APRN, BALLOON SANDER [address]2 [facility] [place] [address] Nurse Practitioner Advanced Practice Nurse 10/08/22
--- OUTSIDE RECORDS SUMMARY | 2025-04-02 12:18 | XMS_ITS | Clinical Summary ---
Author Organization [facility] Address [address] [facility] [place] [address] Care Team Providers Care Chief Medical Director Name Role Phone Ronn Salazar MD Primary Care Provider [phone] Source Comments [facility],non-owned Affiliates and Associated Physician Practices is amultiple site organization consisting of ambulatory clinics and hospital sitesin [place], [place], [place] and [place]. This disclosure is being madepursuant to the Care Everywhere program and may not contain all information available regarding this patient. Last updated 18.[facility] Allergies Active Allergy Reactions Criticality Noted Date Comments Casein Diarrhea High 03/22/2022 Chocolate Diarrhea High 03/22/2022 Coffee Flavor Diarrhea High 03/22/2022 Napanoch Oil Diarrhea High 03/22/2022 Peanut Butter Flavor [...] fluticasone propionate (Flonase) 50 MCG/ACT nasal spray [place] 2 (two) sprays into each nostril once [...] complete this topic Insurance [employer] Care Teams Chief Medical Director Relationship Specialty Start Date End Date Ronn Salazar MD [address] [facility] [address] [place] [address] PCP - General 10/23/17
[2025-04-02 12:25] LABS: Alanine Aminotransferase 22 U/L (6-50); Albumin Level 4.7 g/dL (3.5-5.1); Alkaline Phosphatase 75 U/L (38-126); Anion Gap 10 mmol/L (4-12); Aspartate Amino Transferase 24 U/L (17-59); Bilirubin,Total 0.5 mg/dL (0.2-1.3); Blood Urea Nitrogen 11 mg/dL (9-20); Calcium 9.0 mg/dL (8.4-10.2); Carbon Dioxide 25 mmol/L (22-30); Chloride 104 mmol/L (98-107); Estimated CRCL calculation 121 ml/min; Estimated Glomerular Filt Rate > 60; Glucose 94 mg/dL (65-110); Lipase 251 U/L (23-300); Potassium 4.0 mmol/L (3.4-5.0); Sodium 139 mmol/L (137-145); Total Protein 8.2 g/dL (6.3-8.2)
--- NOTE | 2025-04-02 12:29 | ED.ABDPAIN ---
HPI - Abdominal Pain General Chief Complaint: Abdominal Pain Stated Complaint: abd pain Time Seen by Provider: 04/02/25 11:59 Source: patient, RN notes reviewed and old records reviewed Mode of arrival: ambulatory Limitations: no limitations History of Present Illness HPI narrative: This is a 29 year old male who presents for evaluation of upper abdominal pain. He states he has been having this pain intermittently for a few months. He states his pain will be located across his upper abdomen and it may last from 1-2 days. He states when he initially had the pain his mother thought is was due to breathing in cold air at night. He developed the pain again this morning. He states his pain lasted 1 hour and it resolved after apply heating pad. He denies pain worsening with eating but he may have some with breathing. HE denies associated nasuea, vomiting, fever, chills, diarrhea. He denies chest pain or shortness of breath. His pain has completely resolved at this point. Related Data Home Medications ?Medication ?Instructions ?Recorded ?Confirmed ?Last Taken ?Type cholecalciferol (vitamin D3) 125 125 mcg PO DAILY 11/20/21 11/20/21 Unknown History mcg (5,000 unit) capsule mecobalamin (vitamin B12) 5,000 5,000 mcg PO DAILY 11/20/21 11/20/21 Unknown History mcg lozenge rizatriptan 10 mg tablet (Maxalt) 10 mg PO ONCE 11/20/21 11/20/21 Unknown History topiramate 25 mg tablet (Topamax) 25 mg PO DAILY 11/20/21 11/20/21 Unknown History Allergies Allergy/AdvReac Type Severity Reaction Status Date / Time No Known Allergies Allergy Verified 04/02/25 11:42 PMFSH Past Medical History Medical History (Updated 04/02/25 @ 14:17 by Fadia Daniels MD) Patient denies medical problems Surgical History Surgical History (Updated 04/02/25 @ 14:18 by Fadia Daniels MD) No pertinent past surgical history Social History Social History Smoking status: Never smoker Exam Const: General: no acute distress and alert Nutritional Appearance: well nourished and obese Orientation/consciousness: patient oriented x3 HENMT: Head: normal to inspection Eyes: EOM: EOMs intact bilaterally Chest: Chest palpation & inspection: normal inspection of the chest Resp: Effort & Inspection: normal respiratory effort Auscultation: clear to auscultation bilaterally Cardio: Rate: regular rate Rhythm: regular rhythm Heart sounds: no murmurs GI: GI Palp: Yes Soft to palpation, No Tenderness to palpation present (GI), No Guarding due to palpation present (GI) and No Rigid due to palpation Auscultation: normal bowel sounds Skin: General skin exam: normal color Rashes: no rashes Neuro: General: patient oriented x3, moves all extremities and CN's II-XI intact bilaterally Extrem: General: normal to inspection Psych: Mental Status: mental status grossly normal Affect: normal affect Attitude: cooperative Course Reevaluation(s) Reevaluation #1: Patient is not having any pain. I discussed Ultrasound shows gallstone so we discussed diet restriction of fatty foods, alcohol to prevent pain. His chest xray reports possible pneumonia. He denies cough but will start on antibiotics given. Date: 04/02/25 Time: 14:05 Vital Signs Vital signs: Vital Signs Temperature 98.2 F 04/02/25 11:07 Pulse Rate 72 04/02/25 11:07 Respiratory Rate 18 04/02/25 11:07 Blood Pressure 147/72 H 04/02/25 11:07 Pulse Oximetry 97 04/02/25 11:07 Oxygen Delivery Room Air 04/02/25 11:07 Temperature 98.2 F 04/02/25 11:07 Pulse Rate 72 04/02/25 11:07 Respiratory Rate 18 04/02/25 11:07 Blood Pressure 147/72 H 04/02/25 11:07 Pulse Oximetry 97 04/02/25 11:07 Oxygen Delivery Room Air 04/02/25 11:07 MDM - Abdominal Pain Lab Data Attestation: I reviewed the patient's lab results. 04/02/25 11:57 04/02/25 11:57 Labs: Lab Results 04/02/25 Range/Units 11:57 WBC 7.5 (4.5-10.0) K/mm3 RBC 5.19 (4.6-6.20) M/mm3 Hgb 15.0 (14.0-18.0) g/dL Hct 45.5 (42.0-52.0) % MCV 87.7 (80-100) fl MCH 28.9 (26-34) pg MCHC 33.0 (32-36) g/dl RDW 12.0 (11.5-14.5) % Plt Count 296 (150-375) k/mm3 MPV 8.6 (7.4-10.4) fl Immature Gran % (Auto) 0.3 (0-0.5) % Neut % (Auto) 62.2 (45.5-73.1) % Lymph % (Auto) 25.1 (18.3-44.2) % [place] % (Auto) 9.6 H (2.6-8.5) % Eos % (Auto) 2.1 (0-4.4) % Baso % (Auto) 0.7 (0.2-1.2) % Lymph # (Auto) 1.88 (0.9-3.2) K/mm3 [place] # (Auto) 0.7 H (0.1-0.6) K/mm3 Eos # (Auto) 0.2 (0-0.3) K/mm3 Baso # (Auto) 0.1 (0.0-0.1) K/mm3 Abs Immat Gran (auto) 0.02 (0.00-0.031) K/mm3 Absolute Neuts (auto) 4.7 (1.3-6.7) K/mm3 Absolute Nucleated RBC 0.000 (0.0-0.012) K/mm3 Nucleated RBC % 0.0 (0.0-0.2) % PT 14.6 (11.1-14.7) Seconds INR 1.1 APTT 35.1 (22.3-36.8) Seconds D-Dimer < 0.27 (<0.48) ug/mL Sodium 139 (137-145) mmol/L Potassium 4.0 (3.4-5.0) mmol/L Chloride 104 (98-107) mmol/L Carbon Dioxide 25 (22-30) mmol/L Anion Gap 10 (4-12) mmol/L BUN 11 (9-20) mg/dL Creatinine 1.03 (0.7-1.3) mg/dL Estim Creat Clear Calc 121 ml/min Estimated GFR > 60 (59 - ) Glucose 94 (65-110) mg/dL Calcium 9.0 (8.4-10.2) mg/dL Total Bilirubin 0.5 (0.2-1.3) mg/dL AST 24 (17-59) U/L ALT 22 (6-50) U/L Alkaline Phosphatase 75 (38-126) U/L Troponin I < 0.012 (0.000-0.034) ng/mL Total Protein 8.2 (6.3-8.2) g/dL Albumin 4.7 (3.5-5.1) g/dL Lipase 251 (23-300) U/L Urine Color Yellow (Yellow) Urine Appearance Clear (Clear) Urine pH 6.0 (5.0-9.0) Ur Specific [place] 1.007 (1.001-1.035) Urine Protein Negative (Negative) mg/dL Urine Glucose (UA) Negative (Negative) mg/dL Urine Ketones Negative (Negative) mg/dL Ur Blood (Man) Negative (Negative) Urine Nitrate Negative (Negative) Urine Bilirubin Negative (Negative) Urine Urobilinogen 0.2 (<2.0) mg/dL Leukocyte Esterase Rfl Negative (Negative) MOODY/UL Imaging Data Radiologist's impression: ITS Impressions Chest X-Ray 04/02/25 13:12 IMPRESSION: 1. Small right lower lobe atelectasis and/or airspace disease. Abdomen Ultrasound 04/02/25 13:53 IMPRESSION: 1. Gallstones. No evidence of cholecystitis. 2. Hepatic steatosis and/or diffuse hepatocellular disease. ECG Data EKG #1: Attestation: I personally reviewed and interpreted this ECG as follows: ECG completion date: 04/02/25 ECG completion time: 12:29 Interpretation: early repolarization normal rate (63), sinus rhythm, RBBB and NL axis Discharge Plan Discharge Clinical Impression: Epigastric abdominal pain Cholelithiasis Qualifiers: Cholelithiasis location: gallbladder Cholecystitis presence: without cholecystitis Biliary obstruction: without biliary obstruction Qualified Code(s): K80.20 - Calculus of gallbladder without cholecystitis without obstruction Patient Disposition: Home Condition: Stable Instructions: Antibiotic Form, Gallstones (ED), Bacterial Pneumonia (ED) Additional Instructions: Today you were found to possible have pneumonia so I have prescribed antibiotics. You were also found to have gallstones . Please eat low fat diet and refrain from alcohol use. Call your primary care provider on Friday for follow up . Patient Language: Icelandic Prescriptions: New doxycycline hyclate 100 mg tablet 100 mg PO BID Qty: 14 0RF famotidine [Pepcid] 20 mg tablet 20 mg PO DAILY Qty: 14 0RF No Action topiramate [Topamax] 25 mg tablet 25 mg PO DAILY cholecalciferol (vitamin D3) 125 mcg (5,000 unit) capsule 125 mcg PO DAILY mecobalamin (vitamin B12) 5,000 mcg lozenge 5,000 mcg PO DAILY Rx Instructions: allow to dissolve in mouth OR may chew lightly before swallowing rizatriptan [Maxalt] 10 mg tablet 10 mg PO ONCE Rx Instructions: as a single dose Follow-up/Referrals: PHYSICIAN,SUBSTANCE ABUSE COUNSELOR [Primary Care Provider, Internal Medicine] Andrew James MD [Physician, Family Practice]
[2025-04-02 12:45] LABS: INR 1.1; Prothrombin Time 14.6 Seconds (11.1-14.7)
[2025-04-02 12:46] LABS: Partial Thromboplastin Time 35.1 Seconds (22.3-36.8)
[2025-04-02 12:53] LABS: Troponin I < 0.012 ng/mL (0.000-0.034)
[2025-04-02 14:00] VITALS: BP 137/79; PULSE 85; RESP 16; O2SAT 100
[2025-04-02 14:35] VITALS: BP 120/76; PULSE 82; RESP 18; O2SAT 99
== END 2025-04-02 14:39 | disposition home or self-care (01) ==
PROVIDERS: Emergency Medicine; Emergency Provider General Practice
DX: K80.20 Calculus of gallbladder without cholecystitis without obstruction (principal)
CPT/HCPCS: 36415; 71046; 76705; 80053; 81003; 83690; 84484; 85025; 85380; 85610; 85730; 93005; 99284